=== PATIENT | female | born 1995 | race Two or more races ===

== ENCOUNTER 2024-09-01 14:00 | Emergency (ER) | payer OTHER ==
[~2024-09-01] VITALS: Ht 162.6 cm; Wt 111.6 kg
[2024-09-01 16:39] LABS: HEMATOCRIT 38.5 % (36.0-45.00); HEMOGLOBIN 12.5 g/dL (12.0-15.00); MEAN CELL VOLUME 74.1 fL (80.00-100.00); MEAN CORPUSCULAR HEMOGLOBIN 23.9 pg (27.00-32.0); MEAN CORPUSCULAR HGB CONC 32.3 g/dl (32.0-36.0); PLATELET COUNT 220 K/uL (150-450); RED CELL DISTRIBUTION WIDTH 15.2 % (11.5-14.5)
[2024-09-01 18:20] LABS: PH,URINE 5.5 (5.0-8.0); URINE APPEARANCE Clear; URINE BILIRRUBIN Negative (NEGATIVE); URINE BLOOD Negative; URINE COLOR Yellow; URINE GLUCOSE Negative (NEGATIVE); URINE KETONE Negative (NEGATIVE); URINE LEUKOCYTE Negative; URINE NITRATE Negative; URINE PROTEIN Negative (NEGATIVE); URINE UROBILINOGEN 0.2 E.U./dl
[2024-09-01 18:21] LABS: URINE BACTERIA 682.9 uL (0.0-1933); URINE EPITHELIAL CELLS 8.7 uL (0.0-38.8); URINE RBC 5.6 uL (0.0-20.8)
[2024-09-01 18:28] LABS: URINE WBC 1.2 uL (0.0-23.2)
== END 2024-09-01 18:39 | disposition home or self-care (01) ==
LOC: ER 14:02
PROVIDERS: General Practice
DX: O26.899 Other specified pregnancy related conditions, unspecified trimester (principal); Z3A.17 17 weeks gestation of pregnancy; R10.2 Pelvic and perineal pain

== ENCOUNTER 2024-10-15 17:46 | Outpatient (CLI) | payer OTHER ==
[2024-10-15 16:56] VITALS: BP 109/71
[2024-10-15] MEDS ORDERED: RINGERS SOLUTION,LACTATED 1,000 ML IV SCH (18:00)
[2024-10-15 20:19] LABS: URINE APPEARANCE Clear; URINE BILIRRUBIN Negative (NEGATIVE); URINE BLOOD Negative; URINE COLOR Yellow; URINE GLUCOSE Negative (NEGATIVE); URINE KETONE Negative (NEGATIVE); URINE LEUKOCYTE Negative; URINE NITRATE Negative; URINE PROTEIN Negative (NEGATIVE); URINE UROBILINOGEN 0.2 E.U./dl
[2024-10-15 20:23] LABS: URINE BACTERIA 183.4 uL (0.0-1933); URINE EPITHELIAL CELLS 3.4 uL (0.0-38.8); URINE WBC 3.4 uL (0.0-23.2)
[2024-10-15 20:28] LABS: URINE CAST 0.14 uL (0.0-1.40)
[2024-10-15 20:30] LABS: HEMOGLOBIN 11.7 g/dL (12.0-15.00); MEAN CELL VOLUME 73.8 fL (80.00-100.00); MEAN CORPUSCULAR HEMOGLOBIN 23.4 pg (27.00-32.0); MEAN CORPUSCULAR HGB CONC 31.7 g/dl (32.0-36.0); PLATELET COUNT 190 K/uL (150-450); RED BLOOD COUNT 5.01 M/uL (4.00-6.00)
[2024-10-15 21:07] LABS: ALBUMIN 2.9 gm/dL (3.4-5.0); BILIRUBIN TOTAL 0.48 mg/dL (0.3-1.2); CREATININE SERUM 0.51 mg/dL (0.55-1.02); GFR 143.59; GLOBULINA 3.4 G/DL (2.4-3.5); POTASSIUM 4.28 mEq/L (3.5-5.1); TOTAL PROTEIN 6.3 gm/dL (6.4-8.2)
[2024-10-15 23:17] VITALS: BP 94/61
[2024-10-16 03:49] VITALS: BP 99/69
[2024-10-16 06:03] VITALS: BP 104/66; O2SAT 98
[2024-10-16 11:22] VITALS: BP 117/67; O2SAT 98
[2024-10-16 14:48] VITALS: BP 111/67
== END 2024-10-16 14:52 | disposition home or self-care (01) ==
LOC: OBS/DEL 17:46
PROVIDERS: ATTEND Specialist
DX: O41.02X0 Oligohydramnios, second trimester, not applicable or unspecified (principal); O44.00 Complete placenta previa NOS or without hemorrhage, unspecified trimester; Z3A.22 22 weeks gestation of pregnancy

== ENCOUNTER 2025-01-29 14:00 | Inpatient (IN) | payer OTHER ==
[~2025-01-29] VITALS: Ht 165.1 cm; Wt 3.2 kg
[2025-02-08 20:05] VITALS: BP 133/83
[2025-02-08] MEDS ORDERED: PRENATAL TABLE1 EAC4 PO (20:38)
[2025-02-08] MEDS ORDERED: IRON325 MG PO (20:38)
[2025-02-08] MEDS ORDERED: CEFAZOLIN SODIUM 1,000 MG VIAL IV ONE (20:45)
[2025-02-08] MEDS ORDERED: RINGERS SOLUTION,LACTATED 1,000 ML IV SCH (20:45)
[2025-02-08 21:38] LABS: PH,URINE 6.5 (5.0-8.0); URINE APPEARANCE Clear; URINE BILIRRUBIN Negative (NEGATIVE); URINE BLOOD Negative; URINE COLOR Yellow; URINE KETONE Negative (NEGATIVE); URINE LEUKOCYTE Small; URINE NITRATE Negative; URINE PROTEIN 30 (NEGATIVE)
[2025-02-08 21:41] LABS: HEMATOCRIT 36.9 % (36.0-45.00); HEMOGLOBIN 11.5 g/dL (12.0-15.00); MEAN CELL VOLUME 69.8 fL (80.00-100.00); MEAN CORPUSCULAR HEMOGLOBIN 21.7 pg (27.00-32.0); MEAN CORPUSCULAR HGB CONC 31.1 g/dl (32.0-36.0); PLATELET COUNT 172 K/uL (150-450); RED BLOOD COUNT 5.28 M/uL (4.00-6.00)
[2025-02-08 21:42] LABS: URINE BACTERIA 237.3 uL (0.0-1933); URINE EPITHELIAL CELLS 16.7 uL (0.0-38.8); URINE RBC 7.8 uL (0.0-20.8); URINE WBC 31.7 uL (0.0-23.2)
[2025-02-08 21:43] LABS: URINE GLUCOSE 100 MG/DL (NEGATIVE)
[2025-02-08 22:00] LABS: INR 0.94; PARTIAL THROMBOPLASTIN TIME 28.4 SECONDS (22.0-34.0); PROTHROMBIN TIME 10.3 SECONDS (9.0-11.5)
[2025-02-08 22:04] LABS: ALBUMIN 2.6 gm/dL (3.4-5.0); BILIRUBIN TOTAL 0.85 mg/dL (0.3-1.2); CALCIUM 9.3 mg/dL (8.5-10.1); CREATININE SERUM 0.75 mg/dL (0.55-1.02); GFR 92.01; GLOBULINA 3.8 G/DL (2.4-3.5); POTASSIUM 4.43 mEq/L (3.5-5.1); TOTAL PROTEIN 6.4 gm/dL (6.4-8.2)
[2025-02-08 23:23] VITALS: BP 145/83
[2025-02-09] MEDS ORDERED: CEFAZOLIN SODIUM 1,000 MG VIAL IV SCH (02:00)
[2025-02-09 03:00] VITALS: BP 127/70
[2025-02-09] MEDS ORDERED: OXYTOCIN 500 ML IV SCH (06:45)
[2025-02-09 07:35] VITALS: BP 119/68
[2025-02-09] MEDS ORDERED: MORPHINE SULFATE 4 MG/ML VIAL IV ONE ×3 (11:00→18:40)
[2025-02-09 11:23] VITALS: BP 134/68
[2025-02-09] MEDS ORDERED: MORPHINE SULFATE 4 MG/ML CARTRIDGE IV PRN (16:45)
[2025-02-09] MEDS ORDERED: OXYTOCIN 20 UNITS/1000ML RL PIGGYBAG IV ONE (17:15)
[2025-02-09] MEDS ORDERED: ERYTHROMYCIN BASE OPHT 1GM EACH TUBE OP ONE (17:15)
[2025-02-09 20:40] VITALS: BP 123/78
[2025-02-10] VITALS: BP 138/79
[2025-02-10 02:03] LABS: HEMATOCRIT 36.1 % (36.0-45.00); HEMOGLOBIN 11.6 g/dL (12.0-15.00); MEAN CELL VOLUME 67.8 fL (80.00-100.00); MEAN CORPUSCULAR HEMOGLOBIN 21.7 pg (27.00-32.0); PLATELET COUNT 150 K/uL (150-450); RED BLOOD COUNT 5.32 M/uL (4.00-6.00); RED CELL DISTRIBUTION WIDTH 17.5 % (11.5-14.5)
[2025-02-10] MEDS ORDERED: ACETAMINOPHEN 500 MG GEL..CAP PO PRN (08:00)
[2025-02-10] MEDS ORDERED: IBUprofen 800 MG TABLET PO PRN (08:00)
[2025-02-10 08:07] VITALS: BP 144/85
[2025-02-10 17:05] VITALS: BP 124/87
[2025-02-11] VITALS: BP 116/69
[2025-02-11] MEDS ORDERED: GUAIFENESIN 200 MG/10 ML BLIST.PACK PO SCH
[2025-02-11 08:46] VITALS: BP 127/83
[2025-02-11 16:27] VITALS: BP 131/86
[2025-02-12 00:53] VITALS: BP 135/83
[2025-02-12] MEDS ORDERED: IBUPROFEN800 MG PO ×2 (06:42→06:49)
[2025-02-12 08:00] VITALS: BP 137/80
[2025-02-12 16:00] VITALS: BP 126/80
== END 2025-02-12 17:56 | disposition home or self-care (01) | DRG 788 ==
LOC: OB/GYN 02-06 14:00 → LDR 02-08 20:31 → O/R 02-09 17:16 → OB/GYN 02-09 17:25
PROVIDERS: ADMIT Specialist; ATTEND Specialist
PROC: 4A1HXCZ Monitoring of Products of Conception, Cardiac Rate, External Approach (ICD-10-PCS; 2025-02-08)
PROC: 10D00Z1 Extraction of Products of Conception, Low, Open Approach (ICD-10-PCS; principal; 2025-02-09 18:45)
DX: O42.02 Full-term premature rupture of membranes, onset of labor within 24 hours of rupture (principal); O62.0 Primary inadequate contractions; O99.02 Anemia complicating childbirth; D64.9 Anemia, unspecified; Z3A.40 40 weeks gestation of pregnancy; Z37.0 Single live birth

== ENCOUNTER 2025-10-20 09:27 | Outpatient (CLI) | payer OTHER ==
[~2025-10-20 09:27] MED LIST: IBUPROFEN800 MG PO; IRON325 MG PO; PRENATAL TABLE1 EAC4 PO
[2025-10-20 09:58] LABS: BASO % 0.5 % (0.1-1.2); EOS # 0.04 (0.04-0.54); EOS % 0.4 % (0.7-7.0); LYMPH # 2.10 (1.18-3.74); LYMPH % 18.9 % (19.3-53.1); MONO # 0.58 (0.24-0.82); MONO % 5.2 % (4.7-12.5); NEUT # 8.26 (1.56-6.13); NEUT % 74.1 % (34.0-71.1); RED CELL DISTRIBUTION WIDTH 16.3 % (11.6-14.4)
[2025-10-20 10:19] LABS: URINE APPEARANCE Clear; URINE BILIRRUBIN Negative (NEGATIVE); URINE BLOOD Negative; URINE COLOR Yellow; URINE GLUCOSE Negative (NEGATIVE); URINE KETONE Negative (NEGATIVE); URINE LEUKOCYTE Moderate; URINE NITRATE Negative; URINE PROTEIN Negative (NEGATIVE); URINE UROBILINOGEN 0.2 E.U./dl
[2025-10-20 10:20] LABS: URINE EPITHELIAL CELLS 23.9 uL (0.0-38.8); URINE RBC 9.4 uL (0.0-20.8); URINE WBC 87.5 uL (0.0-23.2)
[2025-10-20 10:28] LABS: URINE CAST 0.14 uL (0.0-1.40)
[2025-10-20 11:24] LABS: ALT/SGPT 28.0 U/L (12-78); AST/SGOT 10.0 U/L (15-37); BILIRUBIN TOTAL 0.93 mg/dL (0.3-1.2); BUN CREA RATIO 15.0 (7.0-25.0); CHOL HDL RATIO 2.9 (0-5.0); CREATININE SERUM 0.71 mg/dL (0.55-1.02); GFR 97.32; GLOBULINA 3.9 G/DL (2.4-3.5); GLUCOSE FASTING 81.0 mg/dL (65-100); HDL 57.0 mg/dl (40-60); LDL 94.0 mg/dl (0-130); OSMOLALITY SERUM 280.0 MOSM/KG (275-295); TSH 1.07 uIU/mL (0.358-3.74); VLDL 17.0 (0-39)
[2025-10-21 06:06] LABS: hav igm Negative (Negative); hep b c Negative (Negative); hep b s ag Negative (Negative)
[2025-10-22 08:06] LABS: chla t Negative (Negative); neiss Negative (Negative)
== END 2025-10-20 09:35 | disposition home or self-care (01) ==
LOC: LAB 09:27
DX: D64.9 Anemia, unspecified (principal); I10 Essential (primary) hypertension; E11.9 Type 2 diabetes mellitus without complications; E22.9 Hyperfunction of pituitary gland, unspecified; E78.5 Hyperlipidemia, unspecified; R74.01 Elevation of levels of liver transaminase levels; A63.0 Anogenital (venereal) warts; A64 Unspecified sexually transmitted disease; Z11.3 Encounter for screening for infections with a predominantly sexual mode of transmission; Z11.4 Encounter for screening for human immunodeficiency virus [HIV]; Z12.11 Encounter for screening for malignant neoplasm of colon; N39.0 Urinary tract infection, site not specified